=== PATIENT | female | born 1980 | race Caucasian/White ===

== ENCOUNTER 2023-06-01 14:52 | Outpatient (RCR) | payer OTHER, SELFPAY | END 2023-06-02 07:39 | disposition home or self-care (01) | LOC: RPT 14:52 | PROVIDERS: ATTENDING PHYSICIAN Student in an Organized Health Care Education/Training Program; PRIMARYCARE PHYSICIAN Family Medicine | DX: Z73.6 Limitation of activities due to disability (principal); Z98.890 Other specified postprocedural states | CPT/HCPCS: 97010; 97110; 97530 ==